=== PATIENT | female | born 1960 | race Caucasian/White ===

== ENCOUNTER → 2018-03-18 | Outpatient (CLI) | payer OTHER | LOC: M.ULTRA 16:30 | DX: K21.9 Gastro-esophageal reflux disease without esophagitis (principal) ==

== ENCOUNTER → 2021-02-05 | Outpatient (CLI) | payer OTHER | LOC: M.RAD 13:03 | PROVIDERS: ATTEND Registered Nurse Diabetes Educator | DX: R05 Cough (principal); R06.02 Shortness of breath ==